=== PATIENT | female | born 1990 | race Caucasian/White ===

== ENCOUNTER 2019-08-30 22:51 | Emergency (ER) | payer OTHER ==
[2019-08-30 23:06] VITALS: BMI 38.9
[2019-08-30] MEDS ORDERED: ACETAMINOPHEN 1000 MG/100 ML VIAL (NON FORMULARY) IVPB ONE (23:16)
[2019-08-30] MEDS ORDERED: SODIUM CHLORIDE 1,000 ML IV STA (23:16)
[2019-08-30] MEDS ORDERED: ACETAMINOPHEN INJECTION 100 ML IVPB ONE (23:38)
[2019-08-30 23:45] LABS: BASO % 0.3 % (0-2.0); EOS % 1.8 % (0-4.5); HEMATOCRIT 34.9 % (32.4-45.2); HEMOGLOBIN 11.6 GM/dL (10.7-15.3); LYMPH % 19.6 % (8-40); MCH 28.8 pg (25.7-33.7); MCHC 33.3 g/dl (32.0-36.0); MEAN CELL VOLUME 86.5 fl (80-96); MEAN PLT VOLUME 8.8 fl (7.5-11.1); MONO % 7.6 % (3.8-10.2); NEUT % 70.7 % (42.8-82.8); PLATELET COUNT 276 K/MM3 (134-434); RBC 4.03 M/mm3 (3.60-5.2); RDW 12.9 % (11.6-15.6); WHITE BLOOD COUNT 11.8 K/mm3 (4.0-10.0)
[2019-08-31 00:10] LABS: ALBUMIN 2.8 g/dl (3.4-5.0); BILIRUBIN,TOTAL 0.2 mg/dL (0.2-1); BLOOD UREA NITROGEN 4.4 mg/dL (7-18); CALCIUM 8.8 mg/dL (8.5-10.1); CREATININE 0.5 mg/dL (0.55-1.3); POTASSIUM 3.7 mmol/L (3.5-5.1); TOT PROT 6.3 g/dl (6.4-8.2)
[2019-08-31 00:52] LABS: URINE APPEARANCE CLEAR; URINE BILIRUBIN NEGATIVE (NEGATIVE); URINE COLOR YELLOW; URINE GLUCOSE (UA) NEGATIVE (NEGATIVE); URINE KETONE NEGATIVE (NEGATIVE); URINE LEUK ESTERASE TRACE (NEGATIVE); URINE NITRITE NEGATIVE (NEGATIVE); URINE PROTEIN NEGATIVE (NEGATIVE); URINE UROBILINOGEN 0.2 mg/dL (0.2-1.0)
[2019-08-31 00:56] LABS: URINE RBC 0.6 /hpf (0-4); URINE WBC 1.1 /hpf (0-5)
[2019-08-31 00:57] LABS: HYALINE CASTS 0.73 /lpf (0-8); URINE BACTERIA 59.4 /hpf (NEGATIVE)
--- NOTE | 2019-08-31 01:44 | PDOC ---
Documentation entered by Olena Alicia SCRIBE, acting as scribe for Janee Hair MD. Janee Hair MD: This documentation has been prepared by the Ravin kimble Xhesika, SCRIBE, under my direction and personally reviewed by me in its entirety. I confirm that the documentation accurately reflects all work, treatment, procedures, and medical decision making performed by me. History of Present Illness - General Chief Complaint: Pain Stated Complaint: ABD PAIN Time Seen by Provider: 08/30/19 23:09 History Source: Patient Exam Limitations: No Limitations - History of Present Illness Initial Comments: 08/30/19 23:21 The patient is a 28 year old female, , currently 26.2 weeks , with no significant PMH of who presents to the emergency department for L abdominal discomfort since this afternoon. Patient states she was upstairs at L&D, had monitoring which was unremarkable and was given clearance to come to the ED. Patient states she endorsed 5 episodes of loose greenish colored diarrhea associated with nausea. Patient denies any vaginal bleeding or discharge. Patient denies any recent sick contacts. The patient denies chest pain, shortness of breath, headache and dizziness. Denies fever, chills, cough, vomiting, and constipation. Denies dysuria, frequency, urgency and hematuria. Allergies: NKDA Past History - Past Medical History Allergies/Adverse Reactions: Allergies Allergy/AdvReac Type Severity Reaction Status Date / Time No Known Allergies Allergy Verified 08/30/19 22:46 Home Medications: Ambulatory Orders Pnv No.95/Ferrous Fum/Folic AC [ Vitamin Tablet] 1 each PO DAILY - Psycho Social/Smoking Cessation Hx Smoking History: Never smoked Hx Alcohol Use: No Drug/Substance Use Hx: No Substance Use Type: None Review of Systems - Review of Systems Able to Perform ROS?: Yes Comments:: 08/30/19 23:22 GENERAL/CONSTITUTIONAL: No fever or chills. No weakness. HEAD, EYES, EARS, NOSE AND THROAT: No change in vision. No ear pain or discharge. No sore throat. CARDIOVASCULAR: No chest pain or shortness of breath. RESPIRATORY: No cough, wheezing, or hemoptysis. GASTROINTESTINAL: + nausea, + diarrhea. No vomiting, or constipation. GENITOURINARY: No dysuria, frequency, or change in urination. MUSCULOSKELETAL: + L abdominal discomfort. No joint or muscle swelling or pain. No neck or back pain. SKIN: No rash NEUROLOGIC: No headache, vertigo, loss of consciousness, or change in strength/ sensation. ENDOCRINE: No increased thirst. No abnormal weight change. HEMATOLOGIC/LYMPHATIC: No anemia, easy bleeding, or history of blood clots. ALLERGIC/IMMUNOLOGIC: No hives or skin allergy. *Physical Exam - Vital Signs Last Vital Signs Temp Pulse Resp BP Pulse Ox 98.1 F 83 18 96/65 99 08/30/19 22:58 08/30/19 22:58 08/30/19 22:58 08/30/19 22:58 08/30/19 22:58 - Physical Exam Comments: 08/30/19 23:22 GENERAL: Awake, alert, and fully oriented, in no acute distress HEAD: No signs of trauma EYES: PERRLA, EOMI, sclera anicteric, conjunctiva clear ENT: Auricles normal inspection, hearing grossly normal, nares patent, oropharynx clear without exudates. Moist mucosa NECK: Normal ROM, supple, no lymphadenopathy, JVD, or masses LUNGS: Breath sounds equal, clear to auscultation bilaterally. No wheezes, and no crackles HEART: Regular rate and rhythm, normal S1 and S2, no murmurs, rubs or gallops ABDOMEN: + protuberant. + gravid uterus. + L sided adjacent to L hip discomfort. Soft, normoactive bowel sounds. No guarding, no rebound. No masses EXTREMITIES: Normal range of motion, no edema. No clubbing or cyanosis. No cords, erythema, or tenderness NEUROLOGICAL: Cranial nerves II through XII grossly intact. Normal speech, normal gait SKIN: Warm, Dry, normal turgor, no rashes or lesions noted. ED Treatment Course - LABORATORY CBC & Chemistry Diagram: 08/30/19 23:34 08/30/19 23:34 - Medications Given in the ED: ED Medications Discontinued Medications Generic Name Dose Route Start Last Admin Trade Name Freq PRN Reason Stop Dose Admin Acetaminophen 1,000 mg 08/30/19 23:16 08/30/19 23:24 Ofirmev Injection - IVPB 08/30/19 23:17 1,000 mg ONCE ONE Administration Medical Decision Making - Medical Decision Making 08/30/19 23:31 this 28 yo started to have diarrhea a noon today. She states she had 5 episodes of greenish watery stool. Denies sick contacts She had one episode of nausea but no vomiting 08/31/19 01:39 Pt's last bout of diarrhea was a about 10 o clock she had had no fevers, no chill, no pelvic cramping or vag bleeding UA no UTI unremarkable cbc chemistries electrolytes ,renal function wnl pt has an appt with her mass spectrometry specialist today Discharge - Discharge Information Problems reviewed: Yes Clinical Impression/Diagnosis: Second trimester Diarrhea Qualifiers: Diarrhea type: unspecified type Qualified Code(s): R19.7 - Diarrhea, unspecified Condition: Stable Disposition: HOME - Admission No - Follow up/Referral Referrals: Christine Smith DO [Staff Physician] - - Patient Discharge Instructions Patient Printed Discharge Instructions: DI for Diarrhea and Traveler's Diarrhea -- Adult, DI for -- Discomforts and Remedies Additional Instructions: PLEASE KEEP YOUR APPOINTMENT WITH YOUR POWDER MILL OPERATOR RETURN FOR WORSENING SYMPTOMS - Post Discharge Activity
[2019-08-31 02:02] VITALS: BP 112/53; PULSE 65; TEMP 97.9
== END 2019-08-31 02:11 | disposition home or self-care (01) ==
LOC: JER 22:51
PROC: 3E033NZ Introduction of Analgesics, Hypnotics, Sedatives into Peripheral Vein, Percutaneous Approach (ICD-10-PCS; principal; 2019-08-30)
PROC: 3E0337Z Introduction of Electrolytic and Water Balance Substance into Peripheral Vein, Percutaneous Approach (ICD-10-PCS; 2019-08-30)
DX: O26.892 Other specified pregnancy related conditions, second trimester (principal); Z3A.26 26 weeks gestation of pregnancy; R19.7 Diarrhea, unspecified
CPT/HCPCS: 36415; 80053; 81003; 83690; 85025; 99283-25; J0131; J7030

== ENCOUNTER 2019-10-14 08:50 | Inpatient (IN) | payer OTHER ==
[2019-10-14] MEDS: ELECTROLYTE-148 SOLN 1,000 ML IV SCH (09:00)
[2019-10-14] MEDS ORDERED: PHENYLEPHRINE HCL 10 MG/1 ML SINGLE DOSE VIAL ONE (09:50)
[2019-10-14] MEDS ORDERED: morphine SULFATE/PF 0.5 MG/ML (2cc Syringe - QUVA) ONE (09:50)
--- NOTE | 2019-10-14 09:51 | HP ---
Past Medical History - Primary Care Physician PCP:: Amy Yeager - Admission Chief Complaint: Bradycardia x 6 minutes at 32.5 week History of Present Illness: 28 garry EDC 12/09/18 EGA 32.5 weeks with RENETTA of 4 cm and bradycardia admitted for Section History Source: Patient Limitations to Obtaining History: No Limitations - Past Medical History ...: 1 Additional Medical History: E tubes in ears. herpes active - Past Surgical History Past Surgical History: Yes: None Hx Myomectomy: No Hx Transabdominal Cerclage: No - Smoking History Smoking history: Never smoked Have you smoked in the past 12 months: No - Alcohol/Substance Use Hx Alcohol Use: No History of Substance Use: reports: None - Social History Usual Living Arrangement: Yes: With Spouse Do you think of yourself as: Straight/Heterosexual History of Recent Travel: No Home Medications - Allergies Allergies/Adverse Reactions: Allergies Allergy/AdvReac Type Severity Reaction Status Date / Time No Known Allergies Allergy Verified 08/30/19 22:46 - Home Medications Home Medications: Ambulatory Orders Pnv No.95/Ferrous Fum/Folic AC [ Vitamin Tablet] 1 each PO DAILY Review of Systems - Review of Systems Constitutional: reports: No Symptoms Eyes: reports: No Symptoms HENT: reports: No Symptoms Neck: reports: No Symptoms Cardiovascular: reports: No Symptoms Respiratory: reports: No Symptoms Gastrointestinal: reports: No Symptoms Genitourinary: reports: No Symptoms Breasts: reports: No Symptoms Reported Musculoskeletal: reports: No Symptoms Integumentary: reports: No Symptoms Neurological: reports: No Symptoms Endocrine: reports: No Symptoms Hematology/Lymphatic: reports: No Symptoms Psychiatric: reports: No Symptoms Physical Exam - Maternity Constitutional: Yes: Well Nourished, No Distress Cardiovascular: Yes: WNL Breast(s): Yes: WNL - Abdominal Exam/OB Fundal Height: 33 Number of Fetuses: Single Presentation: Vertex Contractions: Yes Category: I - Vaginal Exam/OB Speculum Exam: No Dilatation (cm): FT Amniotic Membrane Status: Leaking Presentation: Vertex/Position - Physical Exam Musculoskeletal: Yes: WNL Extremities: Yes: WNL Edema: No Problem List - Problems (1) bradycardia, antepartum condition or complication Code(s): O36.8390 - MATERN CARE FOR ABNLT FETL HRT RATE OR RHYM, UNSP TRI, UNSP (2) 32 weeks gestation of Code(s): Z3A.32 - 32 WEEKS GESTATION OF (3) Oligohydramnios antepartum Code(s): O41.00X0 - OLIGOHYDRAMNIOS, UNSP TRIMESTER, NOT APPLICABLE OR UNSP Assessment/Plan IUP at 32.5 week Oligo possible PPROM Cat 2 felix cardia X 6 min Plan Section
[2019-10-14 09:58] LABS: BASO % 0.4 % (0-2.0); EOS % 1.1 % (0-4.5); HEMATOCRIT 39.8 % (32.4-45.2); HEMOGLOBIN 13.1 GM/dL (10.7-15.3); LYMPH % 14.2 % (8-40); MCH 27.6 pg (25.7-33.7); MEAN CELL VOLUME 83.6 fl (80-96); MEAN PLT VOLUME 9.3 fl (7.5-11.1); MONO % 8.5 % (3.8-10.2); NEUT % 75.8 % (42.8-82.8); PLATELET COUNT 321 K/MM3 (134-434); RBC 4.76 M/mm3 (3.60-5.2); RDW 13.6 % (11.6-15.6)
[2019-10-14] MEDS ORDERED: METHYLERGONOVINE MALEATE 0.2 MG/1 ML AMP IM PRN (10:05)
[2019-10-14] MEDS ORDERED: IBUPROFEN 800 MG/8 ML IJ IVPB PRN (10:05)
[2019-10-14 10:07] LABS: INR 1.04 (0.83-1.09); PROTHROMBIN TIME (PATIENT) 12.3 SEC (9.7-13.0)
[2019-10-14 10:09] LABS: ACTIVATED PTT 28.4 SECONDS (25.2-36.5)
[2019-10-14] MEDS ORDERED: ONDANSETRON 4 MG/2 ML VIAL IVPUSH PRN (10:13)
[2019-10-14] MEDS ORDERED: IBUPROFEN 600 MG TABLET (FP) PO PRN (10:13)
[2019-10-14] MEDS ORDERED: OXYTOCIN 20 UNITS in 0.9% NS 20 UNIT/1,000 ML INFUS.BAG IV SCH (10:15)
[2019-10-14] MEDS ORDERED: ceFAZolin SODIUM 1 GM VIAL ONE ×2 (10:23)
[2019-10-14 10:25] LABS: BLOOD UREA NITROGEN 3.8 mg/dL (7-18); CALCIUM 9.8 mg/dL (8.5-10.1); CREATININE 0.5 mg/dL (0.55-1.3)
[2019-10-14 10:42] VITALS: BMI 42.0
[2019-10-14] MEDS ORDERED: OXYTOCIN 20 UNITS in 0.9% NS 20 UNIT/1,000 ML INFUS.BAG IV ONE (11:02)
--- NOTE | 2019-10-14 11:11 | SURG ---
Surgery Rn Sane Note Rn Sane: Ricardo Yost PA-C Date of Service: 10/14/19 Diagnosis: bradycardia. iup at 32 week. Breech Presentation. Oligohydramnious Procedure: Section Low transverse I was present for the entirety of the operative procedure. For further detail, please refer to operative report. Visit type - Case Type Case Type: ED Admission - Emergency Emergency Visit: Yes ED Registration Date: 10/14/19 Care time: The patient presented to the Emergency Department on the above date and was hospitalized for further evaluation of their emergent condition. - New patient This patient is new to me today: Yes Date on this admission: 10/14/19 - Critical Care Critical Care patient: No
--- NOTE | 2019-10-14 11:47 | OP ---
Operative Note - Note: Operative Date: 10/14/19 Pre-Operative Diagnosis: bradycardia. iup at 32 week. Breech Presentation. Oligohydramnious Operation: Section Low transverse Findings: Damaso breech presentation Unicornuate uterus normal fallopian tubes normal ovaries Post-Operative Diagnosis: Same as Pre-op Surgeon: Amy Yeager Food Bagging Machine Operator: Ricardo Yost Anesthesia: Spinal Estimated Blood Loss (mls): 500 Operative Report Dictated: Yes
[2019-10-14] MEDS: CEFAZOLIN 1 GM/D5W 1 GM/50 ML BAG IVPB SCH (17:41)
[2019-10-15] MEDS: CEFAZOLIN 1 GM/D5W 1 GM/50 ML BAG IVPB SCH ×2 (02:11→10:53)
[2019-10-15] MEDS: SIMETHICONE 80 MG TAB.CHEW (FP) PO PRN ×2 (06:10→23:00)
[2019-10-15] MEDS: ACETAMINOPHEN 325 MG TABLET (FP) PO PRN ×4 (06:10→23:00)
[2019-10-15] MEDS: IBUPROFEN 600 MG TABLET (FP) PO PRN ×4 (06:11→23:01)
--- NOTE | 2019-10-15 07:17 | PN ---
Post Progress Note - Subjective Subjective: 28 yo Para 1, status post primary at 32 weeks gestation for NRFHR associated with oligohydramnios. Patient seen and evaluated. Doing well. Post Day: 1 Type of Delivery: Primary C/S Vital Signs: Vital Signs Temperature 98.5 F 10/15/19 06:00 Pulse Rate 90 10/15/19 06:00 Respiratory Rate 18 10/15/19 06:00 Blood Pressure 117/78 10/15/19 06:00 O2 Sat by Pulse Oximetry (%) 96 10/14/19 21:00 Breast Exam: Yes: Soft Uterus: Yes: Fundus @ umbilicus Incision: Yes: Dressing dry and intact Abdomen/GI: Yes: Abdomen soft Lochia: Yes: Rubra Lochia, amount: Small Extremities: Yes: Calves non-tender Activity: Other (She's lying in bed) - Labs Labs: CBC WBC 13.0 K/mm3 (4.0-10.0) H 10/14/19 09:20 RBC 4.76 M/mm3 (3.60-5.2) 10/14/19 09:20 Hgb 13.1 GM/dL (10.7-15.3) 10/14/19 09:20 Hct 39.8 % (32.4-45.2) 10/14/19 09:20 MCV 83.6 fl (80-96) 10/14/19 09:20 MCH 27.6 pg (25.7-33.7) 10/14/19 09:20 MCHC 33.0 g/dl (32.0-36.0) 10/14/19 09:20 RDW 13.6 % (11.6-15.6) 10/14/19 09:20 Plt Count 321 K/MM3 (134-434) 10/14/19 09:20 MPV 9.3 fl (7.5-11.1) 10/14/19 09:20 Absolute Neuts (auto) 9.9 K/mm3 (1.5-8.0) H 10/14/19 09:20 Neutrophils % 75.8 % (42.8-82.8) 10/14/19 09:20 Lymphocytes % 14.2 % (8-40) D 10/14/19 09:20 Monocytes % 8.5 % (3.8-10.2) 10/14/19 09:20 Eosinophils % 1.1 % (0-4.5) 10/14/19 09:20 Basophils % 0.4 % (0-2.0) 10/14/19 09:20 Nucleated RBC % 0 % (0-0) 10/14/19 09:20 Problem List - Problems (1) Status post primary low transverse section Problems reviewed: Yes Code(s): Z98.891 - HISTORY OF UTERINE SCAR FROM PREVIOUS SURGERY Assessment/Plan Status post primary Ambulation Analgesia as needed Continue routine post op care
[2019-10-15 07:18] LABS: BASO % 0.4 % (0-2.0); EOS % 0.5 % (0-4.5); HEMATOCRIT 36.3 % (32.4-45.2); HEMOGLOBIN 12.1 GM/dL (10.7-15.3); MCH 28.1 pg (25.7-33.7); MCHC 33.4 g/dl (32.0-36.0); MEAN CELL VOLUME 84.1 fl (80-96); MEAN PLT VOLUME 8.8 fl (7.5-11.1); MONO % 7.3 % (3.8-10.2); NEUT % 79.8 % (42.8-82.8); PLATELET COUNT 270 K/MM3 (134-434); RBC 4.31 M/mm3 (3.60-5.2); RDW 13.6 % (11.6-15.6)
[2019-10-15] MEDS ORDERED: DIPHTH,PERTUSS(ACELL),TET 0.5 ML DISP.SYRIN IM ONE (10:00)
[2019-10-15] MEDS ORDERED: oxyCODONE HCL 5 MG TABLET PO PRN ×2 (10:05)
[2019-10-15] MEDS ORDERED: BISACODYL 10 MG SUPP.RECT RC PRN (10:05)
[2019-10-15] MEDS: FERROUS SO4 325 MG TABLET (FP) PO SCH ×2 (10:55→21:57)
--- NOTE | 2019-10-15 11:39 | PN ---
Progress Note (short form) - Note Progress Note: Anesthessia post op note, POD#1 S/P primary Section under spinal , Duramorph. VSS. AAOX3, ambulating, no apparent post anesthesia complications.
[2019-10-16] MEDS: FERROUS SO4 325 MG TABLET (FP) PO SCH ×2 (10:35→21:57)
[2019-10-16] MEDS: IBUPROFEN 600 MG TABLET (FP) PO PRN ×2 (10:35→19:52)
[2019-10-16] MEDS: ACETAMINOPHEN 325 MG TABLET (FP) PO PRN ×2 (10:36→19:54)
--- NOTE | 2019-10-16 16:33 | PN ---
Post Progress Note - Subjective Subjective: 28 yo Para 1 status post primary , seen and evaluated. Doing well. Post Day: 2 Type of Delivery: Primary C/S Vital Signs: Vital Signs Temperature 98.1 F 10/16/19 08:24 Pulse Rate 79 10/16/19 08:24 Respiratory Rate 20 10/16/19 08:24 Blood Pressure 131/74 10/16/19 08:24 O2 Sat by Pulse Oximetry (%) 96 10/14/19 21:00 Breast Exam: Yes: Soft Incision: Yes: Dressing dry and intact Abdomen/GI: Yes: Abdomen soft, Tolerating PO Lochia: Yes: Rubra Lochia, amount: Small Extremities: Yes: Calves non-tender Activity: Ambulating - Labs Labs: CBC WBC 13.0 K/mm3 (4.0-10.0) H 10/15/19 06:56 RBC 4.31 M/mm3 (3.60-5.2) 10/15/19 06:56 Hgb 12.1 GM/dL (10.7-15.3) 10/15/19 06:56 Hct 36.3 % (32.4-45.2) 10/15/19 06:56 MCV 84.1 fl (80-96) 10/15/19 06:56 MCH 28.1 pg (25.7-33.7) 10/15/19 06:56 MCHC 33.4 g/dl (32.0-36.0) 10/15/19 06:56 RDW 13.6 % (11.6-15.6) 10/15/19 06:56 Plt Count 270 K/MM3 (134-434) 10/15/19 06:56 MPV 8.8 fl (7.5-11.1) 10/15/19 06:56 Absolute Neuts (auto) 10.3 K/mm3 (1.5-8.0) H 10/15/19 06:56 Neutrophils % 79.8 % (42.8-82.8) 10/15/19 06:56 Lymphocytes % 12.0 % (8-40) 10/15/19 06:56 Monocytes % 7.3 % (3.8-10.2) 10/15/19 06:56 Eosinophils % 0.5 % (0-4.5) 10/15/19 06:56 Basophils % 0.4 % (0-2.0) 10/15/19 06:56 Nucleated RBC % 0 % (0-0) 10/15/19 06:56 Problem List - Problems (1) Status post primary low transverse section Problems reviewed: Yes Code(s): Z98.891 - HISTORY OF UTERINE SCAR FROM PREVIOUS SURGERY Assessment/Plan Status post primary Ambulation Analgesia as needed Continue routine post op care
[2019-10-16] MEDS: SIMETHICONE 80 MG TAB.CHEW (FP) PO PRN (19:52)
[2019-10-17 05:56] LABS: BASO % 0.8 % (0-2.0); EOS % 4.6 % (0-4.5); HEMATOCRIT 34.4 % (32.4-45.2); HEMOGLOBIN 11.5 GM/dL (10.7-15.3); LYMPH % 25.1 % (8-40); MCH 28.2 pg (25.7-33.7); MCHC 33.5 g/dl (32.0-36.0); MEAN CELL VOLUME 84.1 fl (80-96); MEAN PLT VOLUME 8.2 fl (7.5-11.1); MONO % 8.7 % (3.8-10.2); NEUT % 60.8 % (42.8-82.8); PLATELET COUNT 295 K/MM3 (134-434); RBC 4.09 M/mm3 (3.60-5.2); RDW 13.5 % (11.6-15.6); WHITE BLOOD COUNT 8.9 K/mm3 (4.0-10.0)
[2019-10-17] MEDS: ACETAMINOPHEN 325 MG TABLET (FP) PO PRN ×3 (06:27→22:03)
[2019-10-17] MEDS: IBUPROFEN 600 MG TABLET (FP) PO PRN ×2 (06:28→22:03)
[2019-10-17] MEDS: SIMETHICONE 80 MG TAB.CHEW (FP) PO PRN (06:28)
[2019-10-17] MEDS: ELECTROLYTE-148 SOLN 1,000 ML IV SCH (09:50)
[2019-10-17] MEDS: FERROUS SO4 325 MG TABLET (FP) PO SCH ×2 (09:51→22:03)
--- NOTE | 2019-10-17 20:33 | PN ---
Post Note - Post Date of Delivery: 10/14/19 Vital Signs: Vital Signs - 24 hr 10/16/19 10/17/19 10/17/19 21:00 10:00 18:06 Temperature 98.3 F 98.4 F Pulse Rate 88 95 H 88 Respiratory 20 20 20 Rate Blood Pressure 117/69 123/75 126/78 10/17/19 20:16 Temperature 98.1 F Pulse Rate 83 Respiratory 18 Rate Blood Pressure 125/70 Labs: Laboratory Results - last 24 hr 10/17/19 05:40 WBC 8.9 RBC 4.09 Hgb 11.5 Hct 34.4 MCV 84.1 MCH 28.2 MCHC 33.5 RDW 13.5 Plt Count 295 MPV 8.2 Absolute Neuts (auto) 5.4 Neutrophils % 60.8 D Lymphocytes % 25.1 D Monocytes % 8.7 Eosinophils % 4.6 H D Basophils % 0.8 Nucleated RBC % 0 - Subjective Subjective: No Complaints, Other (Doing well spoke tp patient over phone. 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
--- NOTE | 2019-10-18 10:07 | DS ---
Physical Exam-CHEMICAL PATHOLOGIST Vital Signs: Vital Signs Temperature 98.1 F 10/17/19 20:16 Pulse Rate 83 10/17/19 20:16 Respiratory Rate 18 10/17/19 20:16 Blood Pressure 125/70 10/17/19 20:16 O2 Sat by Pulse Oximetry (%) 96 10/14/19 21:00 Constitutional: No: No Distress Eyes: Yes: Conjunctiva Clear HENT: Yes: Atraumatic Neck: Yes: Supple Cardiovascular: Yes: Regular Rate and Rhythm Respiratory: Yes: Regular Gastrointestinal: Yes: Normal Bowel Sounds Pelvis: Yes: WNL External Genitalia: Yes: Normal Vaginal Exam: Yes: Normal Cervix: Yes: Normal Wound/Incision: Yes: Clean/Dry, Well Approximated Neurological: Yes: Alert, Oriented Psychiatric: Yes: Alert, Oriented Labs: CBC, BMP 10/17/19 05:40 10/14/19 09:20 Delivery - Delivery Type of Anesthesia: Spinal EBL (cc): 500 Delivery, Single - Stages of Labor Date of Delivery: 10/14/19 Time of Delivery: 10:25 Time Placenta Delivered: 10:26 - Condition of Paint Technician/Cable Assembler Present: Yes Name: Fanta Schumacher Gender: Female Weight: 4 lb 14 oz - 1 Minute Total Score: 7 5 Minutes Total Score: 9 - Feeding Plan Initial Plan: Exclusive throughout hospitalization Discharge Summary Problems reviewed: Yes Reason For Visit: PEMATURE RUPTURE OF MEMBRANE Current Active Problems 32 weeks gestation of (Acute) bradycardia, antepartum condition or complication (Acute) Oligohydramnios antepartum (Acute) Status post primary low transverse section (Acute) Procedures: Principal: Primary Hospital Course: Routine post op care Health Concerns: Thromboembolism Plan of Treatment: Ambulation Analgesia PRN pain F/U with MD in 2 weeks Goals: Resume normal activities in 6 weeks Condition: Good - Instructions Diet, Activity, Other Instructions: Physical activity Resume your normal everyday activity as tolerated no heavy lifting or exercise until seen by your surgeon. You may walk unlimited myles of and climb stairs. You may resume driving the car when you feel safe and comfortable behind the wheel. No sexual activity as instructed. Wound care If you have a bandage, leave it on, and keep dry for 48-72 hours. After that time discard the outer bandage. If they are tapes on the skin under the out of bandage leave them in place. They will peel off in the next 7 to 10 days. Do Not Peel them off. You may shower the day after surgery. If there are tapes present on the skin, you may shower over them. Diet There are no dietary restrictions. Eat healthy, high-fiber foods. Drink 6 to 8 glasses of liquid each day. This will assist in keeping your bowels are regular. Pain management You may take Tylenol or acetaminophen or Ibuprofen (for example, Motrin, Advil etc.) from my pain prescription medication is ordered should be taken as prescribed for moderate to severe pain. Call MD for any of the following: Severe pain not relieved by medication Fever of 101 or higher Excessive bleeding or drainage on dressing Inability to urinate Referrals: Amy Yeager MD [Staff Physician] - Disposition: HOME - Home Medications Comprehensive Discharge Medication List: Ambulatory Orders Pnv No.95/Ferrous Fum/Folic AC [ Vitamin Tablet] 1 each PO DAILY Ibuprofen [Motrin -] 600 mg PO QID #28 tablet 10/17/19
[2019-10-18] MEDS: FERROUS SO4 325 MG TABLET (FP) PO SCH (10:38)
[2019-10-18 12:04] VITALS: BP 111/72; PULSE 98; TEMP 97.9
--- NOTE | 2019-10-19 16:24 | PATH ---
Surgical Pathology Report Patient Name: MACIEL DAVIS Med. Rec. #: [id number] /Age/Gender: 1990 (Age: 28) / F Account: [id number] Location: [facility] OBS/PRODUCT SUPPORT TECHNICIAN Taken: 10/14/2019 Received: 10/17/2019 Reported: 10/19/2019 Physicians: Amy Yeager M.D. Specimen(s) Received PLACENTA Clinical History PPROM 32+ weeks gestation Breech- CANx2 Final Diagnosis PLACENTA, SECTION: 380 G THIRD TRIMESTER PLACENTA WITH TRIVASCULAR UMBILICAL CORD AND UNREMARKABLE PLACENTAL MEMBRANES. Electronically Signed Sejal Dawson M.D. Gross Description The specimen is received fresh labeled placenta and is a 380 gram, 20.0 x 12.5 x 2.0 cm. placenta with attached membranes and umbilical cord. The attached membranes are joyner, translucent with focal opacities and insert marginally. The umbilical cord measures 11 cm. in length and averages 1.2 cm. in diameter. The cord inserts eccentrically, 3.5 cm. to the nearest margin. No true knots or strictures are identified. Cut surface of the umbilical cord reveals 3 vessels. The surface is morales-blue with minimal fibrin deposition and appropriate caliber vessels. The maternal surface is red-brown with focal defects. Sectioning reveals red-brown, spongy parenchyma. No lesions are identified. Sales Recruiting Coordinator sections are submitted in three cassettes as follows: 1- membrane rolls and umbilical cord; 2-3- full thickness sections of placenta. 10/17/2019 saudi10/17/2019
--- NOTE | 2019-10-20 13:49 | OP ---
DATE OF OPERATION: 10/14/2019 PREOPERATIVE DIAGNOSES: bradycardia and intrauterine at 32 weeks, and breech presentation, oligohydramnios. OPERATION: Low transverse section. FINDINGS: Live delivered in stephen breech position with a unicornuate uterus noted and bilateral tubes and ovaries noted to be normal. POSTOPERATIVE DIAGNOSES: bradycardia and intrauterine at 32 weeks, and breech presentation, oligohydramnios. SURGEON: Des Yeager MD PEDIATRICIAN/MEDICAL DOCTOR: Ricardo Yost PA-C ANESTHESIA: Spinal. ESTIMATED BLOOD LOSS: 500 mL. PROCEDURE: Patient was taken to the operating room, placed in supine position, prepped and draped in the usual sterile fashion. Timeout was performed in accordance with hospital regulation. Pfannenstiel skin incision was made. Cautery was then used to go through layers of abdominal wall to the level of the fascia. Fascia was cut in the midline, and cautery was then used to open the fascia in smiling fashion. Kochers were then used to bluntly and sharply dissect the rectus muscle off the fascia. Muscles split in the midline. Peritoneal cavity was then entered and carried upward and downward. Bladder retractor was then placed. Vesicouterine reflection was identified and entered and carried down. Scalpel was then used to make a low transverse uterine incision. Incision was carried upwards using bandage scissors. A live female was delivered in stephen breech presentation. Head was delivered without difficulty. Shoulders also delivered without difficulty. Cord was clamped and cut. was handed to the antique furniture repairer. Placenta was manually extracted from the uterus. Uterus was exteriorized and cleaned with clean laparotomy pads. Uterine incision then closed using 0 Biosyn suture, first layer continuous and locking, second was imbricating the first layer. Hemostasis was achieved. Tubes were noted to be normal bilaterally. Salpingectomy was not performed. The uterus was interiorized. Abdominal cavity cleaned with clean lap pads. Peritoneum was then closed using 0 Biosyn suture in continuous stitch. Fascia was then closed using 0 Vicryl suture in 2 parts. Skin was then closed using 3-0 Vicryl in subcuticular fashion. Wound was washed and dressed. The patient had tolerated the procedure well, was taken to recovery in stable condition. DES YEAGER M.D. [id number]
== END 2019-10-18 12:10 | disposition home or self-care (01) | DRG 787 ==
LOC: JDEL 08:50 → JLDR 09:08 → J3W 12:25
PROVIDERS: ADMIT Obstetrics & Gynecology; ATTEND Obstetrics & Gynecology
PROC: 10D00Z1 Extraction of Products of Conception, Low, Open Approach (ICD-10-PCS; principal; 2019-10-14)
DX: O32.1XX0 Maternal care for breech presentation, not applicable or unspecified (principal); O41.03X0 Oligohydramnios, third trimester, not applicable or unspecified; O76 Abnormality in fetal heart rate and rhythm complicating labor and delivery; Z3A.32 32 weeks gestation of pregnancy; Z37.0 Single live birth
CPT/HCPCS: 36415; 36600; 80048; 82803; 85025; 85610; 85730; 86593; 86850; 86900; 86901; 88307-TC; 90715

== ENCOUNTER → 2020-05-30 | Day surgery (SDC) | payer BC, OTHER ==
--- NOTE | 2020-06-02 13:58 | PATH ---
Cytology Non-Gynecological Report Patient Name: MACIEL DAVIS Med. Rec. #: [id number] /Age/Gender: 1990 (Age: 29) / F Account: [id number] Location: [facility] Taken: 05/30/2020 Received: 05/30/2020 Reported: 06/02/2020 Physicians: Susan Martinez M.D. Specimen(s) Received RIGHT THYROID FNA Clinical History Right thyroid nodule 1.1 x 0.63 x 1.3 cm Final Diagnosis THYROID, RIGHT, FINE NEEDLE ASPIRATION: SATISFACTORY FOR EVALUATION BETHESDA CLASS II: BENIGN SMALL FOLLICULAR CELLS, MACROPHAGES, AND ABUNDANT COLLOID PRESENT, CONSISTENT WITH A BENIGN THYROID NODULE. . Electronically Signed Anjana Hough M.D. Gross Description Received are eight direct smears, four of which are air-dried and Diff-Quik stained, and four of which are alcohol fixed and Pap stained. Also received is 20 ml of bloody formalin from which one cellblock is prepared.
== END | disposition home or self-care (01) ==
LOC: JRADIR 10:23
PROVIDERS: ATTEND Otolaryngology
PROC: 0G9H3ZX Drainage of Right Thyroid Gland Lobe, Percutaneous Approach, Diagnostic (ICD-10-PCS; principal; 2020-05-30)
DX: E04.1 Nontoxic single thyroid nodule (principal)
CPT/HCPCS: 10005; 76942; 88173; 88305-TC

== ENCOUNTER → 2021-01-17 | Day surgery (SDC) | payer OTHER | END | disposition home or self-care (01) | LOC: JASU-SURG 11:03 | PROVIDERS: ATTEND Internal Medicine Endocrinology, Diabetes & Metabolism | PROC: 0G9H3ZX Drainage of Right Thyroid Gland Lobe, Percutaneous Approach, Diagnostic (ICD-10-PCS; principal; 2021-01-17) | DX: E04.1 Nontoxic single thyroid nodule (principal) | CPT/HCPCS: 76942; 88173; 88305-TC ==

== ENCOUNTER 2022-01-27 13:36 | Emergency (ER) | payer OTHER ==
[2022-01-27 13:56] VITALS: BP 122/81; PULSE 106; TEMP 98.3; BMI 39.8
[2022-01-27 16:13] LABS: URINE APPEARANCE CLEAR; URINE BILIRUBIN NEGATIVE (NEGATIVE); URINE COLOR YELLOW; URINE GLUCOSE (UA) NEGATIVE (NEGATIVE); URINE KETONE NEGATIVE (NEGATIVE); URINE LEUK ESTERASE NEGATIVE (NEGATIVE); URINE NITRITE NEGATIVE (NEGATIVE); URINE PROTEIN NEGATIVE (NEGATIVE); URINE UROBILINOGEN 0.2 mg/dL (0.2-1.0)
[2022-01-27 16:18] LABS: BASO % 0.5 % (0-2.0); EOS % 1.6 % (0-4.5); HEMATOCRIT 39.9 % (32.4-45.2); HEMOGLOBIN 13.2 GM/dL (10.7-15.3); LYMPH % 23.8 % (8-40); MCH 28.6 pg (25.7-33.7); MCHC 33.2 g/dl (32.0-36.0); MEAN CELL VOLUME 85.9 fl (80-96); MEAN PLT VOLUME 8.9 fl (7.5-11.1); MONO % 6.7 % (3.8-10.2); NEUT % 67.4 % (42.8-82.8); PLATELET COUNT 307 10^3/uL (134-434); RBC 4.64 M/mm3 (3.60-5.2); WHITE BLOOD COUNT 8.9 K/mm3 (4.0-10.0)
[2022-01-27 16:29] LABS: HCG,QUALITATIVE URINE Positive
[2022-01-27 17:37] LABS: BLOOD UREA NITROGEN 8.2 mg/dL (7-18); CALCIUM 9.3 mg/dL (8.5-10.1)
[2022-01-27 17:38] LABS: ALBUMIN 4.1 g/dl (3.4-5.0)
[2022-01-27 17:41] LABS: CREATININE 0.6 mg/dL (0.55-1.3)
[2022-01-27 17:42] LABS: BILIRUBIN,TOTAL 0.2 mg/dL (0.2-1); TOT PROT 7.9 g/dl (6.4-8.2)
== END 2022-01-27 18:41 | disposition home or self-care (01) ==
LOC: JER 13:36
DX: O20.0 Threatened abortion (principal)
CPT/HCPCS: 36415; 76817-TC; 80053; 81003; 84702; 84703; 85025; 86850; 86900; 86901; 87070; 87086; 87205; 99284-25

== ENCOUNTER 2022-08-12 19:08 | Emergency (ER) | payer OTHER ==
[2022-08-12 19:57] VITALS: BP 134/97; PULSE 78; RESP 20; TEMP 98.2; BMI 42.9
== END 2022-08-12 22:00 | disposition home or self-care (01) ==
LOC: JER 19:08
DX: Z20.822 Contact with and (suspected) exposure to COVID-19 (principal)
CPT/HCPCS: 99283-25; C9803-CS; U0003; U0005

== ENCOUNTER 2022-08-15 01:01 | Emergency (ER) | payer OTHER ==
[2022-08-15 01:15] VITALS: TEMP 98.1; BMI 45.3
[2022-08-15] MEDS ORDERED: MAGNESIUM SULF 50% (8.12 MEQ/2 ML-1 GM VIAL) IVPB ONE (02:23)
[2022-08-15] MEDS ORDERED: METOCLOPRAMIDE HCL INJECTION 10 MG/2 ML VIAL IVPUSH ONE (02:23)
[2022-08-15] MEDS ORDERED: MAGNESIUM SULFATE IN WATER 2 GM/50 ML IVPB IVPB ONE (02:28)
[2022-08-15] MEDS ORDERED: METOCLOPRAMIDE HCL INJECTION 10 MG/2 ML VIAL ONE (02:28)
[2022-08-15 02:32] LABS: HEMOGLOBIN 12.7 GM/dL (10.7-15.3); MEAN CELL VOLUME 81.1 fl (80-96)
[2022-08-15 02:35] LABS: ACTIVATED PTT 32.4 SECONDS (25.2-36.5)
[2022-08-15 02:45] LABS: ALBUMIN 3.2 g/dl (3.4-5.0); BLOOD UREA NITROGEN 8.8 mg/dL (7-18); CALCIUM 9.5 mg/dL (8.5-10.1)
[2022-08-15 02:49] LABS: BILIRUBIN,TOTAL 0.2 mg/dL (0.2-1); CREATININE 0.6 mg/dL (0.55-1.3); TOT PROT 7.1 g/dl (6.4-8.2)
[2022-08-15 02:52] LABS: BASO % 0.6 % (0-2.0); EOS % 2.1 % (0-4.5); HEMATOCRIT 38.9 % (32.4-45.2); MCH 26.5 pg (25.7-33.7); MCHC 32.7 g/dl (32.0-36.0); MEAN PLT VOLUME 8.5 fl (7.5-11.1); MONO % 6.6 % (3.8-10.2); NEUT % 70.7 % (42.8-82.8); PLATELET COUNT 450 10^3/uL (134-434); RDW 14.6 % (11.6-15.6); WHITE BLOOD COUNT 10.8 K/mm3 (4.0-10.0)
[2022-08-15 02:54] LABS: EPI CELLS 12 /uL (0-25.1); HYALINE CASTS 2 /uL (0-3.1); URINE APPEARANCE CLEAR; URINE BACTERIA 115 /uL (0-1359); URINE BILIRUBIN NEGATIVE (NEGATIVE); URINE COLOR RED; URINE GLUCOSE (UA) NEGATIVE (NEGATIVE); URINE KETONE NEGATIVE (NEGATIVE); URINE LEUK ESTERASE 3+ (NEGATIVE); URINE NITRITE NEGATIVE (NEGATIVE); URINE PROTEIN 1+ (NEGATIVE); URINE RBC 723 /uL (0-23.9); URINE UROBILINOGEN 0.2 mg/dL (0.2-1.0); URINE WBC 218 /uL (0-25.8)
[2022-08-15 02:59] LABS: INR 1.09 (0.83-1.09); PROTHROMBIN TIME (PATIENT) 12.5 SEC (9.7-13.0)
[2022-08-15 03:36] VITALS: BP 142/93; PULSE 72; RESP 18
[2022-08-15] MEDS ORDERED: ACETAMINOPHEN 1000 MG/100 ML BAG IVPB ONE (05:22)
[2022-08-15] MEDS ORDERED: ACETAMINOPHEN INJECTION 100 ML IVPB ONE (05:25)
== END 2022-08-15 06:58 | disposition home or self-care (01) ==
LOC: JER 01:01
PROC: 3E0333Z Introduction of Anti-inflammatory into Peripheral Vein, Percutaneous Approach (ICD-10-PCS; principal; 2022-08-15)
PROC: 3E033GC Introduction of Other Therapeutic Substance into Peripheral Vein, Percutaneous Approach (ICD-10-PCS; 2022-08-15)
PROC: 3E033GC Introduction of Other Therapeutic Substance into Peripheral Vein, Percutaneous Approach (ICD-10-PCS; 2022-08-15)
DX: R51.9 Headache, unspecified (principal)
CPT/HCPCS: 36415; 70450-TC; 71045-TC-FY; 80053; 81003; 83735; 84443; 85025; 85610; 85730; 87086; 93005; 93010; 99285-25

== ENCOUNTER → 2025-01-17 | Day surgery (SDC) | payer OTHER | END | disposition home or self-care (01) | LOC: JRADIR 09:40 | PROVIDERS: ATTEND Internal Medicine Endocrinology, Diabetes & Metabolism | PROC: 0G9G3ZX Drainage of Left Thyroid Gland Lobe, Percutaneous Approach, Diagnostic (ICD-10-PCS; principal; 2025-01-17) | DX: E04.1 Nontoxic single thyroid nodule (principal) | CPT/HCPCS: 10005; 76942; 88173; 88305-TC ==